=== PATIENT | female | born 1995 | race African-American/Black ===

== ENCOUNTER 2016-05-27 11:23 | Emergency (ER) | payer MEDICAID, OTHER ==
[~2016-05-27] VITALS: Ht 170.2 cm; Wt 68.0 kg
[~2016-05-27 11:23] MED LIST: BACTRIM DS TAB1 EAC1 ORAL; KEFLEX500 MG ORAL
[2016-05-27] MEDS ORDERED: LR 1000ml 1,000 ML IV SCH (11:45)
[2016-05-27] MEDS ORDERED: DiphenhydrAMINE 50mg/ml Inj IVP ONE (11:45)
[2016-05-27] MEDS ORDERED: Ketorolac 30mg Inj IV ONE (11:45)
[2016-05-27] MEDS ORDERED: Tubing IV Cassette IV ONE (12:37)
[2016-05-27 13:00] VITALS: BP 127/86
[2016-05-27] MEDS ORDERED: REGLAN10 MG ORAL (14:09)
[2016-05-27 14:13] VITALS: BP 121/76
--- NOTE | 2016-05-28 14:33 | Emergency Room Report ---
History of Present Illness General Chief Complaint: General Complaint Source: Patient Present Illness HPI 20YOF with known migraines (usually takes ibuprofen), with 2-3 days intermittent frontal headache without assoc nausea/vomiting, neck pain/ stiffness. Took ibuprofen yesterday. No sick contacts. Allergies: Coded Allergies: No Known Allergies (Unverified , 12/18/12) Patient History Past Medical History: migraines Past Surgical History: none Pertinent Family History: none Social History: Denies: alcohol use, drug use, smoking Now: No Immunizations: UTD Reviewed Nursing Documentation: PMH: Agreed, PSxH: Agreed Nursing Documentation-PMH Past Medical History: No Stated History Review of Systems All Other Systems: negative except mentioned in HPI Physical Exam Vital Signs Date Time Temp Pulse Resp B/P Pulse Ox O2 Delivery O2 Flow Rate FiO2 05/27/16 11:55 98.1 78 20 127/86 100 Room Air Sp02 EP Interpretation: reviewed, normal General Appearance: normal inspection, well appearing, no apparent distress, alert, GCS 15, non-toxic Head: normocephalic, atraumatic Eyes: bilateral eye EOMI, bilateral eye PERRL ENT: normal ENT inspection, hearing grossly normal, normal voice Neck: normal inspection, full range of motion, supple, no bony tend Respiratory: normal inspection, lungs clear, normal breath sounds, no respiratory distress, no retraction, no wheezing Cardiovascular #1: regular rate, rhythm, no edema Gastrointestinal: normal inspection, normal bowel sounds, non tender, soft, no guarding, no hernia Genitourinary: no CVA tenderness Musculoskeletal: normal inspection, back normal, normal range of motion, Peggy' s Sign negative Neurologic: normal inspection, alert, oriented x3, responsive, dentistry professor III-XII nml as tested, motor strength/tone normal, cerebellar normal, normal gait, speech normal Psychiatric: normal inspection, judgement/insight normal, mood/affect normal Skin: normal inspection, normal color, no rash Lymphatic: normal inspection Medical Decision Making Diagnostic Impression: Primary Impression: Migraine Qualified Codes: G43.009 - Migraine without aura, not intractable, without status migrainosus ER Course 20yo f with headache. Known migraine. C/w previous migraine VSS. Afebrile. Low suspicion for SAH or meningitis given well appearance, absence of focal neuro deficits, absence of meningismus, normal vital signs, and duration and intensity of headache. IV ad PO Meds given with improvement Headache resolved Neuro exam serially negative for focal deficits Vitals stable on discharge F/up with PMD with referral for Neurologist [place] home Last Vital Signs Date Time Temp Pulse Resp B/P Pulse Ox O2 Delivery O2 Flow Rate FiO2 05/27/16 14:13 98.1 71 20 121/76 100 Room Air Status: improved Disposition: HOME, SELF-CARE Condition: Improved Scripts Metoclopramide Hcl* (REGLAN*) 10 Mg Tablet 10 MG ORAL BID for migraine for 3 Days, #10 TAB Prov: JUAN JOSE BEGUM M.D. 05/27/16 Patient Instructions: Migraine Headache, [id number] Additional Instructions: - For recurrent migraine take ibuprofen with Reglan prescribed up to 2x a day - Follow up with primary care or neurologist for evaluation of recurrent migraines JUAN JOSE BEGUM M.D. May 28, 2016 14:33
== END 2016-05-27 14:15 | disposition home or self-care (01) ==
LOC: EMR 12:24
DX: G43.909 Migraine, unspecified, not intractable, without status migrainosus (principal)
CPT/HCPCS: 96374; 96375; 99284; J1200; J1885; J7120

== ENCOUNTER 2016-09-06 23:17 | Emergency (ER) | payer MEDICAID, OTHER ==
[~2016-09-06] VITALS: Ht 172.7 cm; Wt 68.0 kg
[~2016-09-06 23:17] MED LIST changes: +REGLAN10 MG ORAL
--- NOTE | 2016-09-06 23:46 | Emergency Room Report ---
History of Present Illness General Chief Complaint: Allergic Reaction Source: Patient Present Illness HPI Patient presents with 2 months of right hand pain. Is worsened after she works. She feels the fingers change in color to red (not blue and blanched). She also has some numbness with her palm.. She is taking ibuprofen (OTC)the past and this helps somewhat. The pain is 7-8/10. Radiates into the wrist area. She felt it was mainly involving her thumb tonight. More radiation to fingers than to elbow. No elbow tenderness. 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 Denies any trauma, fever or rashes. No h/o arthritis, lupus. No URI sy, NVD. She doesn't believe she is . Allergies: Coded Allergies: Cat Dander (Verified Allergy, Unknown, 09/06/16) Patient History Past Medical History: see triage record Pertinent Family History: other - Mom with L wrist splint Social History Narrative works at a [employer] Last Menstrual Period: August 30, 2016 Now: No : 1 Para: 0 Reviewed Nursing Documentation: PMH: Agreed, PSxH: Agreed Nursing Documentation-PMH Past Medical History: No History, Except For Review of Systems All Other Systems: negative except mentioned in HPI Physical Exam Vital Signs Date Time Temp Pulse Resp B/P Pulse Ox O2 Delivery O2 Flow Rate FiO2 09/06/16 23:21 98.6 108 19 148/84 100 Room Air Sp02 EP Interpretation: reviewed, normal General Appearance: well appearing, no apparent distress, GCS 15 Head: normocephalic, atraumatic Eyes: bilateral eye PERRL, bilateral eye normal inspection ENT: hearing grossly normal, normal voice, moist mucus membranes Neck: full range of motion, supple, no bony tend Respiratory: no respiratory distress, speaking full sentences Cardiovascular #1: regular rate, rhythm Gastrointestinal: normal inspection Musculoskeletal: gait/station normal, normal range of motion, swelling - none, other - tenderness R carpal tunnel with increased sy with palpation. No ulnar tunnel tenderness. Neurologic: alert, oriented x3, motor strength/tone normal, DTRs symmetric, sensory intact - subjective numbness volar surface hand, cerebellar normal, normal gait, speech normal Psychiatric: mood/affect normal Skin: no rash, other - possible min erythema of thumb ([place]) Medical Decision Making Diagnostic Impression: Primary Impression: Carpal tunnel syndrome Qualified Codes: G56.01 - Carpal tunnel syndrome, right upper limb ER Course Patient presents with R hand/thumb pain/numbness and possibly redness. DDx; Raynaud's, carpal tunnel, peripheral neuropathy, contusion, sprain amongst others. Exam suggests carpal tunnel. Xrays would not be helpful in dx. Treatment is symptomatic (NSAIDs) and with immobilization and elevation. Volar aplint applied by tech with good position and tension. Neurovasc unchanged with placement, thought improvement in symptoms. Patient stable for outpatient observation and treatment. Discussed need for further evaluation. Patient stable for outpatient observation and treatment. (Family requesting full work release tomorrow.) Last Vital Signs Date Time Temp Pulse Resp B/P Pulse Ox O2 Delivery O2 Flow Rate FiO2 09/06/16 23:52 98.6 67 19 127/91 100 Room Air Status: improved Disposition: HOME, SELF-CARE Condition: Improved Scripts Ibuprofen* (MOTRIN*) 600 Mg Tablet 600 MG ORAL Q6H Y for For Pain, #20 TAB Prov: Gen Juarez M.D. 09/06/16 Gen Juarez M.D. Sep 06, 2016 23:46
[2016-09-06] MEDS ORDERED: IBUPROFEN600 MG ORAL (23:48)
[2016-09-06 23:52] VITALS: BP_SYST 127; BP_SYST 148; BP_DIAS 84; BP_DIAS 91
== END 2016-09-07 | disposition home or self-care (01) ==
LOC: EMR 23:41
DX: G56.01 Carpal tunnel syndrome, right upper limb (principal)
CPT/HCPCS: 29125; 99283

== ENCOUNTER 2016-11-24 07:45 | Emergency (ER) | payer MEDICAID, OTHER ==
[~2016-11-24] VITALS: Ht 170.2 cm; Wt 73.5 kg
[~2016-11-24 07:45] MED LIST changes: +IBUPROFEN600 MG ORAL
[2016-11-24 07:54] VITALS: BP 133/76
[2016-11-24] MEDS ORDERED: TYLENOL COLD &1 EAC1 PO (08:30)
[2016-11-24 08:35] VITALS: BP 133/76
--- NOTE | 2016-11-24 12:58 | Emergency Room Report ---
History of Present Illness General Chief Complaint: Upper Respiratory Illness Source: Patient Present Illness HPI 20-year-old female presents to ED for evaluation. States her last 2 days she's been having sneezing and runny nose and coughing. Cough is dry. Denies fevers or chills. Denies sore throat or earache. Denies sick contacts recent travel. Patient does admit to seasonal allergies. No other aggravating or relieving factors. Denies any other associated symptoms Allergies: Coded Allergies: Cat Dander (Verified Allergy, Unknown, 09/06/16) Patient History Past Medical History: none Past Surgical History: none Pertinent Family History: none Social History: Denies: smoking, alcohol use, drug use Last Menstrual Period: 10/25/2016 Now: No Immunizations: UTD Reviewed Nursing Documentation: PMH: Agreed, PSxH: Agreed Nursing Documentation-PMH Past Medical History: No History, Except For Hx Cardiac Problems: No - migraines Hx Hypertension: No Hx Pacemaker: No Hx Asthma: No Hx COPD: No Hx Diabetes: No Hx Cancer: No Hx Gastrointestinal Problems: No Hx Dialysis: No History Of Psychiatric Problem: No Hx Neurological Problems: No Hx Cerebrovascular Accident: No Hx Seizures: No Review of Systems All Other Systems: negative except mentioned in HPI Physical Exam Vital Signs Date Time Temp Pulse Resp B/P (MAP) Pulse Ox O2 Delivery O2 Flow Rate FiO2 11/24/16 07:54 98.2 83 16 133/76 99 Room Air Sp02 EP Interpretation: reviewed, normal General Appearance: no apparent distress, alert, GCS 15, non-toxic Head: normocephalic, atraumatic Eyes: bilateral eye normal inspection, bilateral eye PERRL ENT: hearing grossly normal, normal pharynx, no angioedema, normal voice Neck: full range of motion, supple/symm/no masses Respiratory: chest non-tender, lungs clear, normal breath sounds, speaking full sentences Cardiovascular #1: regular rate, rhythm, no edema Cardiovascular #2: 2+ carotid (R), 2+ carotid (L), 2+ radial (R), 2+ radial (L) , 2+ dorsalis pedis (R), 2+ dorsalis pedis (L) Gastrointestinal: normal bowel sounds, non tender, soft, non-distended, no guarding, no rebound Rectal: deferred Genitourinary: normal inspection, no CVA tenderness Musculoskeletal: back normal, gait/station normal, normal range of motion, non- tender Neurologic: alert, oriented x3, responsive, motor strength/tone normal, sensory intact, speech normal Psychiatric: judgement/insight normal, memory normal, mood/affect normal, no suicidal/homicidal ideation Reflexes: 3+ bicep (R), 3+ bicep (L), 3+ tricep (R), 3+ tricep (L), 3+ knee (R) , 3+ knee (L) Skin: normal color, no rash, warm/dry, well hydrated Lymphatic: no adenopathy Medical Decision Making Diagnostic Impression: Primary Impression: Upper respiratory infection Qualified Codes: J06.9 - Acute upper respiratory infection, unspecified ER Course Hospital Course 20-year-old female presents to ED complaining of cough, runny nose with sneezing Differential diagnoses include: URI, pharyngitis, otitis media, asthma Clinical course Patient placed on stretcher. After initial history, physical exam reveals a female in no acute distress. Bilateral TM unremarkable. No pharyngeal erythema. No tonsillar exudates. No lymphadenopathy. lungs clear. abdomen soft. Clinical findings consistent with URI. Reassurance given. treatment is supportive therapy Diagnosis - URI Stable and discharged home with Rx Tylenol multi-symptom. Instructed to followup with PMD. Return to ED if symptoms recur or worsen Last Vital Signs Date Time Temp Pulse Resp B/P (MAP) Pulse Ox O2 Delivery O2 Flow Rate FiO2 11/24/16 08:35 98.2 81 19 133/76 100 Room Air Status: improved Disposition: HOME, SELF-CARE Condition: Stable Scripts Phenylephrine/Dm/Acetaminop/Gg (TYLENOL COLD & FLU SEVERE CPLT) 1 Each Tablet 1 EACH PO Q6HR, #30 TAB Prov: LISA ARCOS M.D. 11/24/16 Referrals: NOT CHOSEN IPA/MD,REFERRING Departure Forms: Return to Work Return to Work Date: Nov 25, 2016 Work Restrictions: None Patient Instructions: Upper Respiratory Infection, Adult LISA ARCOS M.D. Nov 24, 2016 12:58
== END 2016-11-24 08:35 | disposition home or self-care (01) ==
LOC: EMR 08:23
DX: J06.9 Acute upper respiratory infection, unspecified (principal); Z91.09 Other allergy status, other than to drugs and biological substances
CPT/HCPCS: 99283

== ENCOUNTER 2017-05-29 10:38 | Emergency (ER) | payer MEDICAID, OTHER ==
[~2017-05-29] VITALS: Ht 170.2 cm; Wt 68.0 kg
[~2017-05-29 10:38] MED LIST changes: +TYLENOL COLD &1 EAC1 PO
[2017-05-29] MEDS ORDERED: NKM (10:47)
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
[2017-05-29] MEDS ORDERED: IBUPROFEN600 MG ORAL (11:07)
[2017-05-29] MEDS ORDERED: ROBAXIN500 MG PO (11:07)
[2017-05-29] MEDS ORDERED: TRAMADOL HCL50 MG ORAL (11:07)
[2017-05-29 11:15] VITALS: BP 121/77
[2017-05-29] MEDS ORDERED: traMADol 50mg tab ORAL ONE (11:15)
== END 2017-05-29 11:15 | disposition home or self-care (01) ==
LOC: EMR 11:05
DX: S13.4XXA Sprain of ligaments of cervical spine, initial encounter (principal); V43.62XA Car passenger injured in collision with other type car in traffic accident, initial encounter; Y92.410 Unspecified street and highway as the place of occurrence of the external cause
CPT/HCPCS: 99284

== ENCOUNTER 2017-10-08 09:24 | Emergency (ER) | payer MEDICAID ==
[~2017-10-08] VITALS: Ht 170.2 cm; Wt 74.8 kg
[~2017-10-08 09:24] MED LIST changes: +NKM; +ROBAXIN500 MG PO; +TRAMADOL HCL50 MG ORAL
[2017-10-08] MEDS ORDERED: SUMAtriptan 6mg/0.5ml Inj SUBQ ONE (09:45)
[2017-10-08] MEDS ORDERED: Ketorolac 30mg Inj IV ONE (10:00)
[2017-10-08] MEDS ORDERED: DiphenhydrAMINE 50mg/ml Inj IVP ONE (10:00)
[2017-10-08 10:40] VITALS: BP 109/79
[2017-10-08 10:50] LABS: APPEARANCE,URINE TURBID; BILIRUBIN, URINE NEGATIVE (NEGATIVE); GLUCOSE, URINE (UA) NEGATIVE (NEGATIVE); KETONES,URINE NEGATIVE (NEGATIVE); LEUKOCYTE ESTERASE ,URINE 3+ (NEGATIVE); NITRITE,URINE NEGATIVE (NEGATIVE); PH,URINE 6.5 (4.5-8.0); PROTEIN,URINE 1+ (NEGATIVE); UROBILINOGEN,URINE 1 MG/DL (0.0-1.0)
[2017-10-08 10:55] LABS: COLOR,URINE YELLOW
--- NOTE | 2017-10-08 11:36 | Emergency Room Report ---
History of Present Illness General Chief Complaint: Headache Source: Patient Present Illness HPI This patient has a history of migraines. She states that she woke up with her typical migraine this morning. She denies any different symptoms than her typical migraines. She denies recent illness. She denies fever or chills. She denies neck pain or stiffness. She has no other complaints. Allergies: Coded Allergies: Cat Dander (Verified Allergy, Unknown, 09/06/16) Patient History Past Medical History: migraines Past Surgical History: none Social History: Denies: smoking, alcohol use, drug use Last Menstrual Period: 10/05/2017 Reviewed Nursing Documentation: PMH: Agreed; PSxH: Agreed Nursing Documentation-PMH Past Medical History: No History, Except For Hx Hypertension: No Hx Pacemaker: No Hx Asthma: No Hx COPD: No Hx Diabetes: No Hx Cancer: No Hx Gastrointestinal Problems: No Hx Dialysis: No Hx Neurological Problems: No Hx Cerebrovascular Accident: No Hx Seizures: No Review of Systems All Other Systems: negative except mentioned in HPI Physical Exam Vital Signs Date Time Temp Pulse Resp B/P (MAP) Pulse Ox O2 Delivery O2 Flow Rate FiO2 10/08/17 09:37 97.5 74 16 119/77 99 Room Air 97.5 Sp02 EP Interpretation: reviewed, normal General Appearance: no apparent distress, alert, GCS 15, non-toxic Head: normocephalic, atraumatic Eyes: bilateral eye normal inspection, bilateral eye PERRL ENT: hearing grossly normal, normal pharynx, no angioedema, normal voice Neck: full range of motion, supple/symm/no masses Respiratory: chest non-tender, lungs clear, normal breath sounds, no respiratory distress, no retraction, no accessory muscle use, speaking full sentences Cardiovascular #1: regular rate, rhythm, no edema Rectal: deferred Musculoskeletal: back normal, gait/station normal, normal range of motion, non- tender Neurologic: alert, oriented x3, responsive, motor strength/tone normal, sensory intact, speech normal Psychiatric: judgement/insight normal, memory normal, mood/affect normal, no suicidal/homicidal ideation Skin: normal color, no rash, warm/dry, well hydrated Medical Decision Making Diagnostic Impression: Primary Impression: Migraine Additional Impression: Trichomonas infection ER Course This patient is a clinical presentation consistent with migraine. The patient was treated with Compazine, Benadryl, Toradol and 1 liter of normal saline. The patient had complete resolution of the headache. There were no red flags on physical exam or history. I do not suspect meningitis, intracranial bleed, sinusitis. This patient was found incidentally to have Trichomonas in her urine. When I went to go discuss this with the patient and plan for discharge with treatment for Trichomonas, the patient had eloped without her discharge paperwork. Per the RN caring for the patient the patient didn't want to wait to speak with me after her migraine had resolved because she needed to be somewhere. Therefore, the patient did not receive her discharge paperwork or the treatment for Trichomonas. Laboratory Tests Test 10/08/17 10:10 Urine Color Yellow Urine Appearance Turbid Urine pH 6.5 (4.5-8.0) Urine Specific [place] 1.015 (1.005-1.035) Urine Protein 1+ (NEGATIVE) H Urine Glucose (UA) Negative (NEGATIVE) Urine Ketones Negative (NEGATIVE) Urine Occult Blood 4+ (NEGATIVE) H Urine Nitrite Negative (NEGATIVE) Urine Bilirubin Negative (NEGATIVE) Urine Urobilinogen 1 MG/DL (0.0-1.0) H Urine Leukocyte Esterase 3+ (NEGATIVE) H Urine RBC 5-10 /HPF (0 - 2) H Urine WBC 5-10 /HPF (0 - 2) H Urine Squamous Epithelial Cells Many /LPF (NONE/OCC) H Urine Bacteria Few /HPF (NONE) Urine Trichomonas Few /HPF (NONE) H Urine HCG, Qualitative Negative (NEGATIVE) Last Vital Signs Date Time Temp Pulse Resp B/P (MAP) Pulse Ox O2 Delivery O2 Flow Rate FiO2 10/08/17 10:40 97.5 88 16 109/79 100 Room Air 97.5 Disposition: ELOPED Condition: Stable Referrals: NON PHYSICIAN (PCP) Ernestina Szymanski DO Oct 08, 2017 11:36
[2017-10-08 11:47] VITALS: BP 109/79
== END 2017-10-08 11:48 | disposition left against medical advice (07) ==
LOC: EMR 10:17
DX: G43.909 Migraine, unspecified, not intractable, without status migrainosus (principal); A59.09 Other urogenital trichomoniasis
CPT/HCPCS: 81003; 81025; 96361; 96372; 96374; 96375; 99285; J0780; J1200; J1885